=== PATIENT | female | born 1990 ===

== ENCOUNTER 2018-12-14 10:55 | Emergency (ER) | payer MEDICAID ==
[2018-12-14 11:01] VITALS: BP 121/79; PULSE 114; RESP 18; TEMP 98.8; O2SAT 99
--- NOTE | 2018-12-14 11:36 | C.PDOC ---
History Of Present Illness 28 y/o female pt presents to the ED for medical eval of sore throat for x3 days. Associated sx includes headache, dry cough, fever and nasal congestion. Pt states that she saw Dr. Moreno yesterday and was prescribed Augmentin, Sudafed and Ibuprofen. She continues to have pain, rated 9/10. She denies any dizziness, weakness, SOB, bodyaches, chest pain, nausea, vomiting, diarrhea, and abdominal pain. Time Seen by Provider: 12/14/18 11:01 Chief Complaint (Nursing): Cough, Cold, Congestion History Per: Patient History/Exam Limitations: no limitations Onset/Duration Of Symptoms: Days (x3) Current Symptoms Are (Timing): Still Present Sick Contacts (Context): None Associated Symptoms: Fever, Sore Throat, Cough. denies: Sputum, Neck Pain, Sinus Drainage, Myalgias, Nasal Congestion, Nausea, Vomiting, Diarrhea Severity: Severe Pain Scale Rating Of: 9 Past Medical History Reviewed: Historical Data, Nursing Documentation, Vital Signs Vital Signs: Last Vital Signs Temp 98.8 F 12/14/18 11:00 Pulse 114 H 12/14/18 11:00 Resp 18 12/14/18 11:00 BP 121/79 12/14/18 11:00 Pulse Ox 99 12/14/18 11:00 Family History: States: No Known Family Hx - Social History Hx Tobacco Use: No Hx Alcohol Use: No Hx Substance Use: No Review Of Systems Constitutional: Positive for: Fever. Negative for: Weakness ENT: Positive for: Nose Congestion, Throat Pain Cardiovascular: Negative for: Chest Pain Respiratory: Positive for: Cough (dry\). Negative for: Shortness of Breath Gastrointestinal: Negative for: Nausea, Vomiting, Abdominal Pain, Diarrhea Musculoskeletal: Negative for: Other (body aches) Neurological: Positive for: Headache. Negative for: Weakness, Dizziness Physical Exam - Physical Exam Appears: Well, Non-toxic, No Acute Distress Skin: Warm, Dry, No Rash Head: Atraumatic, Normacephalic Eye(s): bilateral: Normal Inspection, PERRL Ear(s): Bilateral: Normal (TM intact AU; non erythematous) Nose: Normal, No Discharge Oral Mucosa: Moist Throat: No Erythema, Other (tonsil enlargment ) Neck: Normal ROM, Supple Lymphatic: No Adenopathy (cervical) Chest: Symmetrical Cardiovascular: Rhythm Regular Respiratory: Normal Breath Sounds Gastrointestinal/Abdominal: Soft, No Tenderness Neurological/Psych: Oriented x3, Normal Speech, Normal Cognition, Normal Motor, Normal Sensation ED Course And Treatment O2 Sat by Pulse Oximetry: 99 (RA) Pulse Ox Interpretation: Normal Medical Decision Making Medical Decision Making: Impression: URI plan: -- tylenol 650mg given now Continue Augmentin, Pseudophed, and Ibuprofen Start alternating Ibuprofen with Tylenol q6 hrs for fever Start Flonase 1 spray twice a day Start Chloraseptic spray or lozenges prn for sore throat Encourage Rest and Hydration Follow up with PCP in 1-2 days Return to ED if symptoms worsen Pt verbalizes understanding and is in agreement with plan. She is stable for d/c. Disposition Counseled Patient/Family Regarding: Diagnosis, Need For Followup, Rx Given - Disposition Referrals: Renuka Moreno MD [Medical Doctor] - Disposition: HOME/ ROUTINE Disposition Time: 11:33 Condition: STABLE Additional Instructions: Continue Augmentin, Pseudophed, and Ibuprofen Start alternating Ibuprofen with Tylenol q6 hrs Start Flonase 1 spray twice a day Start Chloroseptic spray or lozenges prn for sore throat Encourage Rest and Hydration Follow up with PCP in 1-2 days Return to ED if symptoms worsen Prescriptions: Acetaminophen [Tylenol] 650 mg PO BID PRN #20 capsule PRN Reason: Pain, Moderate (4-7) Fluticasone Nasal [Flonase] 1 spr NS BID #1 bottle Phenol/Glycerin [Chloraseptic Max Colbert] 1 spray PO TID PRN #1 bottle PRN Reason: Sore Throat Instructions: Upper Respiratory Infection (ED) Forms: [employer] (Bruneian) Print Language: MALAWIAN - Clinical Impression Clinical Impression: Upper respiratory infection - 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 - Scribe Statement The provider has reviewed the documentation as recorded by the Jean Marie Martinez Do All medical record entries made by the Scribe were at my direction and personally dictated by me. I have reviewed the chart and agree that the record accurately reflects my personal performance of the history, physical exam, medical decision making, and the department course for this patient. I have also personally directed, reviewed, and agree with the discharge instructions and disposition.
== END 2018-12-14 11:55 | disposition home or self-care (01) ==
LOC: C.ER 10:55
DX: J06.9 Acute upper respiratory infection, unspecified (principal)

== ENCOUNTER 2019-01-04 04:08 | Emergency (ER) | payer MEDICAID ==
[2019-01-04 04:41] VITALS: TEMP 98.4; O2SAT 99
[2019-01-04] MEDS ORDERED: Aluminum Hydroxide/Magnesium Hydroxide Susp (30 mL) PO STA (05:34)
[2019-01-04] MEDS ORDERED: Alum-Mag Hydrox-Simethicone Susp (30 mL) ONE (05:48)
--- NOTE | 2019-01-04 06:14 | C.PDOC ---
History Of Present Illness 28 y/o female pt presents to the ER c/o abdominal discomfort and vomiting x2 hours [employer]. Pt denies fever and diarrhea. Pt's son also here in ED for same complaint. Time Seen by Provider: 01/04/19 04:48 Chief Complaint (Nursing): Abdominal Pain History Per: Patient History/Exam Limitations: no limitations Onset/Duration Of Symptoms: Hrs (x2) Current Symptoms Are (Timing): Still Present Past Medical History Reviewed: Historical Data, Nursing Documentation, Vital Signs Vital Signs: Last Vital Signs Temp 98.4 F 01/04/19 04:28 Pulse 90 01/04/19 04:28 Resp 20 01/04/19 04:28 BP 100/69 01/04/19 04:28 Pulse Ox 99 01/04/19 04:28 Family History: States: No Known Family Hx - Social History Hx Tobacco Use: No Hx Alcohol Use: No Hx Substance Use: No - Immunization History Hx Tetanus Toxoid Vaccination: No Hx Influenza Vaccination: No Hx Pneumococcal Vaccination: No Review Of Systems Except As Marked, All Systems Reviewed And Found Negative. Constitutional: Negative for: Fever Gastrointestinal: Positive for: Vomiting, Abdominal Pain. Negative for: Diarrhea Physical Exam - Physical Exam Appears: Non-toxic, No Acute Distress Skin: Warm, Dry, No Rash Head: Normacephalic Eye(s): bilateral: Normal Inspection Nose: Normal Oral Mucosa: Moist Throat: Normal, No Erythema, No Exudate Chest: Symmetrical Cardiovascular: Rhythm Regular Respiratory: Normal Breath Sounds, No Rales, No Rhonchi, No Wheezing Gastrointestinal/Abdominal: Soft, No Tenderness Back: No CVA Tenderness Neurological/Psych: Oriented x3, Normal Speech ED Course And Treatment O2 Sat by Pulse Oximetry: 99 (RA) Pulse Ox Interpretation: Normal Progress Note: plans: -- maalox. -- zofran. -- pepcid. Pt continues to improve in NAD. Tolerated PO .VSS, Abd soft NT. Pt will be d/c with return instructions and follow up Reevaluation Time: 06:47 Disposition Counseled Patient/Family Regarding: Diagnosis, Need For Followup, Rx Given - Disposition Referrals: 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 - Scribe Statement The provider has reviewed the documentation as recorded by the Cristyibliz Martinez Do All medical record entries made by the Scribe were at my direction and personally dictated by me. I have reviewed the chart and agree that the record accurately reflects my personal performance of the history, physical exam, medical decision making, and the department course for this patient. I have also personally directed, reviewed, and agree with the discharge instructions and disposition.
[2019-01-04 07:03] VITALS: BP 118/75; PULSE 79; RESP 18
== END 2019-01-04 07:04 | disposition short-term general hospital (02) ==
LOC: C.ER 04:08
DX: R11.10 Vomiting, unspecified (principal)